=== PATIENT | male | born 1990 | race Caucasian/White ===

== ENCOUNTER 2019-05-11 08:16 | Emergency (ER) | payer MEDICAID ==
[~2019-05-11] VITALS: Ht 188 cm; Wt 135.5 kg
[~2019-05-11 08:16] MED LIST: BACTRIM DS TABL1 TAB PO; PERCOCET 10/3251 TA1 PO
[2019-05-11 08:19] VITALS: Ht 188 cm; Wt 135.5 kg
[2019-05-11] MEDS ORDERED: OMEPRAZOLE20 M1 PO (08:20)
[2019-05-11 08:48] LABS: APPEARANCE CLEAR (CLEAR); BILIRUBIN NEGATIVE (NEGATIVE); COLOR YELLOW (YELLOW); GLUCOSE NEGATIVE (NEGATIVE); KETONE NEGATIVE (NEGATIVE); NITRITE NEGATIVE (NEGATIVE); PROTEIN NEGATIVE (NEGATIVE); SPECIFIC GRAVITY 1.025 (1.005-1.020); UROBILINOGEN NORMAL (NORMAL)
[2019-05-11 08:49] LABS: EPITHELIAL CELLS 0-5 /hpf (0-5); RED CELLS - URINE NONE SEEN /hpf (0-5)
[2019-05-11 08:50] LABS: BACTERIA FEW /hpf (NONE SEEN)
[2019-05-11] MEDS ORDERED: CLOTRIM ANTIFUN15 GM TOPICAL (08:50)
[2019-05-11] MEDS ORDERED: DOXYCYCLINE HY100 M2 PO (08:50)
[2019-05-11 08:56] VITALS: BP 142/88
== END 2019-05-11 09:00 | disposition home or self-care (01) ==
LOC: D.ER 08:16
PROVIDERS: Emergency Medicine
DX: B09 Unspecified viral infection characterized by skin and mucous membrane lesions (principal); B35.4 Tinea corporis; L73.9 Follicular disorder, unspecified; N34.2 Other urethritis

== ENCOUNTER 2019-07-06 23:25 | Emergency (ER) | payer MEDICAID ==
[~2019-07-06] VITALS: Ht 190.5 cm; Wt 136.4 kg
[~2019-07-06 23:25] MED LIST changes: +CLOTRIM ANTIFUN15 GM TOPICAL; +DOXYCYCLINE HY100 M2 PO; +OMEPRAZOLE20 M1 PO
[2019-07-06 23:45] VITALS: Ht 190.5 cm; Wt 136.4 kg
[2019-07-07] MEDS ORDERED: DILAUDID4 MG PO (00:13)
[2019-07-07] MEDS ORDERED: DOXYCYCLINE HY100 M2 PO (00:13)
[2019-07-07 00:21] VITALS: BP 129/73
== END 2019-07-07 00:22 | disposition home or self-care (01) ==
LOC: D.ER 23:25
DX: L08.89 Other specified local infections of the skin and subcutaneous tissue (principal)

== ENCOUNTER → 2020-01-08 13:40 | Outpatient (CLI) | payer BC ==
[2019-07-06 23:45] VITALS: BMI 37.5
--- NOTE | ~2020-01-08 | EC ---
PATIENT:KENISHA RIVAS DATE OF SERVICE: 01/08/20 SEX: M MEDICAL RECORD: [id number] DATE OF : [birth year] LOCATION:[facility] AGE OF PATIENT: 29 ADMISSION DATE: 01/08/20 REFERRING PHYSICIAN: INTERPRETING PHYSICIAN: ALIZA SHERWOOD MD ECHOCARDIOGRAM REPORT ECHO CHARGES 4 ECHO COMPLETE Date: 01/08/20 CLINICAL DIAGNOSIS: CP/MURMUR/HTN ECHOCARDIOGRAPHIC MEASUREMENTS (adult normal given) AC root (d.<3.7cm) 4.0 cm LV Septum d (<1.2 cm> 1.1 cm Valve Excursion 2.3 cm LV Septum (systole) 1.6 cm Left Atria (s.<4.0cm> 4.5 cm LVPW d(<1.2cm) 1.0 cm RV (d.<2.3cm) 3.8 cm LVPW (sytole) 1.6 cm LV diastole(<5.6CM) 7.4 cm MV E-F(>70mm/sec) cm LV systole 5.5 cm LVOT Diameter 2.4 cm MV exc.(>10mm) cm Est.ejection fraction (50-75%) % DOPPLER: LVIT cm/sec A 59.0 cm/sec E 65.0 cm/sec LA cm/sec RVSP 13.2 mmHg LVOT 84.0 cm/sec AOP1/2T m/s Asc. Ao 113 cm/sec RVOT 51.0 cm/sec RA cm/sec PA 114 cm/sec AV Gradient Peak 5.1 mmHg AV Mean 2.6 mmHg AV Area 3.8 cm MV Gradient Peak 2.2 mmHg MV Mean 1.0 mmHg MV Area cm COMMENTS: OP - HC Wall Scraper: 1 CHRIS SAM Certified Surgical Technologist: 3 Dr. Glynn TAPE# PACS Pericardial Effusion N DATE OF SERVICE: Adequate 2D, color flow imaging, spectral Doppler, and M-mode. No LVH. LV internal dimension is normal. Wall motion is normal. EF is greater than or equal to 55%. Aortic valve is tricuspid. No evidence of stenosis by Doppler interrogation. Left atrium is normal at 4.5 cm. Mitral valve shows no prolapse. Trace MR. Right-sided chambers are grossly normal. Trace TR. TRANSINT:[id number] Voice Confirmation ID: [id number] DOCUMENT ID: [id number] ECHOCARDIOGRAM REPORT [id number] EVELYN,KENISHA LARA ALIZA HARPER MD CC: [id number] DICTATION DATE: 01/12/20 1300 DIRECTOR SEARCH MARKETING STRATEGIES: 01/12/20 2352 DEP CLI 01/08/20 [place] [id number]
[~2020-01-08 13:40] MED LIST changes: +DILAUDID4 MG PO
== END | disposition home or self-care (01) ==
LOC: D.HCCECHO 13:40
PROVIDERS: ATTEND Internal Medicine Interventional Cardiology
DX: R07.9 Chest pain, unspecified (principal); R01.1 Cardiac murmur, unspecified